=== PATIENT | female | born 1985 | race Caucasian/White ===

== ENCOUNTER → 2016-10-11 | Outpatient (CLI) | payer OTHER ==
[~2016-10-11] MED LIST: GABA1CAP4 PO; TRAZ50TA35 PO
--- NOTE | 2016-10-11 11:07 | DIAGNOSTIC IMAGING REPORT ---
ULTRASOUND RIGHT UPPER QUADRANT ABDOMEN CLINICAL HISTORY: Nausea. Epigastric abdominal pain. COMPARISON STUDY: Abdominal CT dated 08/14/2016. TECHNIQUE: Real-time, grayscale, and color flow sonography of the right upper quadrant of the abdomen was performed. Images are reviewed in the transverse and longitudinal planes. FINDINGS: Liver: The liver is normal in size and echotexture. There is no intrahepatic biliary ductal dilatation. The main portal vein is patent. Gallbladder: The gallbladder is normal in appearance. No gallstones are identified. There is no gallbladder wall thickening or pericholecystic fluid. A sonographic Keller's sign is reportedly absent. The common bile duct measures up to 0.5 cm in diameter. Pancreas: Visualized portions of the pancreatic head and body are normal in appearance. Right kidney: Survey images of the right kidney demonstrate normal size and echotexture. There is no hydronephrosis. Ascites: None. IMPRESSION: Unremarkable sonographic assessment of the right upper quadrant. No gallstones are identified. Electronically signed by: Michael Noriega M.D. 10/11/2016 11:05 AM Dictated Date/Time: 10/11/2016 11:05 AM
== END ==
LOC: C.ULTR 10:12
PROVIDERS: ATTEND Family Medicine
DX: R10.13 Epigastric pain (principal); R11.0 Nausea

== ENCOUNTER → 2017-03-12 | Outpatient (CLI) | payer OTHER ==
--- NOTE | 2017-03-12 19:21 | DIAGNOSTIC IMAGING REPORT ---
L-SPINE MIN 4 VIEWS ROUTINE HISTORY: Pain L LOWER BACK PAIN COMPARISON: None. FINDINGS: There is no fracture. No subluxation. Disc spaces are preserved. IMPRESSION: No fracture or subluxation within the lumbar spine. Negative study The above report was generated using voice recognition software. It may contain grammatical, syntax or spelling errors. Electronically signed by: Amarjit Joseph M.D. 03/12/2017 7:20 PM Dictated Date/Time: 03/12/2017 7:19 PM
--- NOTE | 2017-03-12 19:23 | DIAGNOSTIC IMAGING REPORT ---
SI JOINTS 3 OR MORE VIEWS CLINICAL HISTORY: L LOWER BACK PAIN COMPARISON STUDY: 03/26/2014 FINDINGS: Negative study. No evidence of bony ankylosis. Sacral foramina are symmetric IMPRESSION: Negative study The above report was generated using voice recognition software. It may contain grammatical, syntax or spelling errors. Electronically signed by: Amarjit Joseph M.D. 03/12/2017 7:22 PM Dictated Date/Time: 03/12/2017 7:21 PM
== END | disposition home or self-care (01) ==
LOC: C.RAD 18:49
PROVIDERS: ATTEND Physician Assistant
DX: M54.5 Low back pain (principal); M46.1 Sacroiliitis, not elsewhere classified

== ENCOUNTER → 2017-04-25 | Outpatient (CLI) | payer OTHER | END | disposition home or self-care (01) | LOC: C.CPL 18:12 | PROVIDERS: ATTEND Psychiatry & Neurology Psychiatry | DX: F90.9 Attention-deficit hyperactivity disorder, unspecified type (principal); R00.1 Bradycardia, unspecified ==

== ENCOUNTER → 2017-12-11 | Day surgery (SDC) | payer OTHER ==
[2017-11-27 13:08] VITALS: Ht 160 cm; Wt 79.5 kg
--- NOTE | 2017-12-08 16:06 | HISTORY & PHYSICAL EXAMINATION ---
DATE OF ADMISSION: 12/11/2017 CHIEF COMPLAINT: Pelvic pain, dyspareunia. HISTORY OF PRESENT ILLNESS: The patient is a 32-year-old 4, para 2. She had 2 spontaneous ABs. She had one delivery by . General health is complicated bipolar disorder. She is on gabapentin 300 mg twice a day, trazodone 100 mg at night for sleep, and Phenergan p.r.n. for nausea and vomiting. She has a Mirena IUD inserted for control, it is presently in place. She has a long-term history of pelvic pain present for well over a year and worsening and basically unresponsive to conservative methods such as nonnarcotic pain relievers. She also has a distressing amount of dyspareunia, which has been present also for over a year and it is getting progressively worse. She had a transvaginal ultrasound which basically showed the IUD was in good position and that the uterus, tubes, and ovaries were normal. She presently being scheduled for diagnostic laparoscopy with a suspected diagnosis of endometriosis. PAST MEDICAL HISTORY: She has 2 children in good health. ALLERGIES: She has no known drug allergies. PAST SURGICAL HISTORY: She had one . MEDICAL HISTORY: She has bipolar disorder and is on medications. SOCIAL HISTORY: Half a pack a day smoker for 8 years. No history of excessive alcohol intake. She is employed. FAMILY HISTORY: Mom is 51, has had recurrent breast cancer. Father 60 in poor health, is overweight, has high blood pressure and a lot of urinary problems. She has 1 sister, positive for hepatitis C. REVIEW OF SYSTEMS: She has a positive history of migraine headaches. PHYSICAL EXAMINATION: GENERAL: Well-developed, well-nourished 32-year-old white female, alert, oriented x3 and cooperative, in no acute distress. EYES: Conjunctivae are pink. Sclerae white, no evidence of jaundice. EARS: Had normal light reflex bilaterally. NOSE: Had normal mucosa. Septum is midline. There were no polyps. THROAT: No erythema or evidence of infection. Teeth are in good state of repair. HEAD: Normocephalic, normal distribution of hair. NECK: Supple. Trachea midline. Thyroid is not enlarged. There is no adenopathy appreciated. Both carotids are of good intensity. CHEST: Clear to auscultation and percussion. No wheezes, rales or rhonchi appreciated. HEART: Regular rhythm. S1, S2 are normal. BREASTS: Normal. ABDOMEN: Soft and nontender. There is a well-healed Pfannenstiel scar. PELVIC: Revealed the IUD string protruding from the external cervical os. Uterus was normal size. There was tenderness and nodularity of both uterosacral ligaments. MUSCULOSKELETAL: Revealed no calf tenderness. IMPRESSIONS OF THIS CASE: Status post section, pelvic pain, symptomatic endometriosis, bipolar disorder. MTDD
[~2017-12-11] VITALS: Ht 160 cm; Wt 79.5 kg
[~2017-12-11] MED LIST changes: +ACET-1311 PO; +ALPR-411 PO; +BUPIVACAINE/EPINEPHRINE 0.5% MPF 1:200,000 30 ML VIAL ONE; +DEXAMETHASONE SOD INJ 4 MG/ML VIAL ONE; +FENTANYL CITRATE INJ 50 MCG/1 ML 2 ML VIAL ONE; +GABA-1219 PO; -GABA1CAP4 PO; +HYDROCODONE/ACETAMIN 5/325MG TAB PO PRN; +IBUPROFEN 600 MG TAB PO PRN; +KETOROLAC TROMETHAMINE 30 MG/ML VIAL IV. PRN; +KETOROLAC TROMETHAMINE 30 MG/ML VIAL ONE; +LACTATED RINGER'S 1000ML 1,000 ML IV SCH; +LIDOCAINE HCL 2% 2 ML VIAL (20MG/ML) ONE; +MIDAZOLAM HCL 1 MG/ML 2ML VIAL ONE; +NURSING VERBAL MED ORDER ONE; +ONDANSETRON INJ 2 MG/ML 2 ML VIAL IV PRN; +ONDANSETRON INJ 2 MG/ML 2 ML VIAL ONE; +OXYCODONE/ACETAMINOPHEN 5-325 TAB PO PRN; +PROPOFOL IV EMULSION 10 MG/ML 20 ML VIAL IV ONE; +SODIUM CHLORIDE 0.9% 1000ML 1,000 ML IV SCH; +SODIUM CHLORIDE 0.9% INJ 10 ML VIAL ONE
--- NOTE | 2017-12-11 11:59 | History & Physical Bridge Note ---
H&P Re-Evaluation Bridge Note: I have examined the patient, reviewed the History & Physical and in the interval since the performance of the History & Physical I have noted the following changes of clinical significance: No changes noted
--- NOTE | 2017-12-11 13:04 | [facility] Post Operative Brief Note ---
Immediate Operative Summary Operative Date Dec 11, 2017. Pre-Operative Diagnosis Pelvic Pain Post-Operative Diagnosis endometriosis Procedure(s) Performed Diagnostic Laparoscopy Surgeon Dr. Shiva Angulo Aircraft Maintenance Manager Surgeon(s) 0 Estimated Blood Loss 1cc Findings Consistent with Post-Op Diagnosis Specimens none Drains None Anesthesia Type General Complication(s) none Disposition Disposition: Recovery Room / PACU
--- NOTE | 2017-12-11 13:15 | Discharge Instructions ---
Discharge Instructions Date of Service Dec 11, 2017. Admission Reason for Admission: Pelvic Pain Discharge Discharge Diagnosis / Problem: ENDOMETRIOSIS Discharge Goals Goal(s): Routine recovery after surgery Activity Recommendations Activity Limitations: as noted below SPECIAL CARE INSTRUCTIONS: * Check temperature twice daily for one week. Report any elevation over 100.4 degrees Fahrenheit (38.0 degrees Celsius). * Call office in the next few days for return appointment. * You may experience some vaginal spotting and/or bleeding, this is normal for one or two weeks and should not alarm you. * Post-operative discomfort may consist of a sore throat, a "bloated" feeling and pain in the shoulders. These are normal symptoms which usually only last for two or three days. FOLLOW UP VISIT: Keep any scheduled doctor appointments. . Instructions / Follow-Up Instructions / Follow-Up SPECIAL CARE INSTRUCTIONS: * Check temperature twice daily for one week. Report any elevation over 100.4 degrees Fahrenheit (38.0 degrees Celsius). * Call office in the next few days for return appointment. * You may experience some vaginal spotting and/or bleeding, this is normal for one or two weeks and should not alarm you. * Post-operative discomfort may consist of a sore throat, a "bloated" feeling and pain in the shoulders. These are normal symptoms which usually only last for two or three days. FOLLOW UP VISIT: Keep any scheduled doctor appointments. Current Hospital Diet Patient's current hospital diet: Discharge Diet Recommended Diet: Regular Diet Procedures Procedures Performed: Diagnostic Laparoscopy Pending Studies Studies pending at discharge: no Medical Emergencies . Who to Call and When: Medical Emergencies: If at any time you feel your situation is an emergency, please call 911 immediately. . Non-Emergent Contact Non-Emergency issues call your: Runstitching Machine Operator Call Non-Emergent contact if: temperature is above 100.5 . . "Provider Documentation" section prepared by Rodrigo Cantrell. .
--- NOTE | 2017-12-11 13:29 | OPERATIVE REPORT ---
DATE OF OPERATION: 12/11/2017 DIAGNOSTIC LAPAROSCOPY INDICATIONS FOR SURGERY: Pelvic pain, dyspareunia. PREOPERATIVE DIAGNOSIS: Suspected endometriosis. POSTOPERATIVE DIAGNOSIS: Suspected endometriosis. SURGEON: Dr. Cantrell ESTIMATED BLOOD LOSS: 5 mL. ANESTHESIA: General. OPERATIVE FINDINGS AND PROCEDURE: The patient was brought to the OR table, correctly identified by armband and conversation. General anesthesia was administered. Perineum, vagina, and lower abdomen were painted with Betadine paint and draped in usual sterile fashion. A catheter was used to empty the bladder. Careful pelvic exam under anesthesia revealed a normal size anteverted uterus. A weighted speculum was placed in the posterior vagina. The anterior lip of the cervix was grasped with single tooth tenaculum and an acorn cannula was inserted into cervical canal for manipulation of the uterus. An IUD string could be seen coming from the cervix at this time. After this, attention was turned to the lower abdomen. The subumbilical area was infiltrated with local with epinephrine. A stab wound was placed and then a Veress needle was inserted into the abdominal cavity and position was checked with normal saline. Following the insertion of about 2.5 L of carbon dioxide gas under low pressure, the incision was then widened laterally. A large cannula and trocar were inserted. The trocar was removed and a laparoscope was inserted. A second puncture site was made in the midline 3 fingerbreadths above the pubic symphysis. This area was also infiltrated with local with epinephrine and a stab wound was placed and a 5 mm trocar and sleeve was inserted under direct visualization. Following this, inspection of the pelvic cavity revealed both ovaries to be freely mobile, no evidence of any endometriosis on the surface of the ovaries, tubes were freely mobile, the bladder flap was clean, insertion of the round ligaments was good. There was endometriosis involving the left lateral uterosacral ligament and the left lateral pelvic wall, this was small, areas that were photographed and documented. Careful inspection of the right-sided pelvis and other areas revealed this to be the only area that showed endometriosis. This involved the lateral pelvic wall and also the left uterosacral ligament. Following photographs, gas was expressed manually. Ports were cleaned with Betadine and sutured with interrupted Vicryl. I attest to the content of the Intraoperative Record and any orders documented therein. Any exception s are noted below.
[2017-12-11 14:19] VITALS: TEMP 36.1
--- NOTE | 2017-12-11 14:19 | Anesthesia Progress Nt - [facility] ---
Anesthesia Post Op Note Date & Time Dec 11, 2017 at 14:19 Vital Signs Pain Intensity: 3.0 Vital Signs Past 12 Hours Date Time Temp Pulse Resp B/P (MAP) Pulse Ox O2 Delivery O2 Flow Rate FiO2 12/11/17 13:16 36.7 85 16 84/62 94 Mask 6 12/11/17 13:16 36.1 58 16 109/74 95 Room Air 12/11/17 11:27 36.5 89 18 90/64 (73) 95 Room Air Notes Mental Status: alert / awake / arousable, participated in evaluation Pt Amnestic to Procedure: Yes Nausea / Vomiting: adequately controlled Pain: adequately controlled Airway Patency, RR, SpO2: stable & adequate BP & HR: stable & adequate Hydration State: stable & adequate Anesthetic Complications: no major complications apparent
[2017-12-11 14:45] VITALS: BP 116/76; PULSE 59; O2SAT 98
== END | disposition home or self-care (01) ==
LOC: X.SURG 11:09
PROVIDERS: ATTEND Obstetrics & Gynecology
DX: R10.2 Pelvic and perineal pain (principal); N94.10 Unspecified dyspareunia; F17.200 Nicotine dependence, unspecified, uncomplicated; Z88.2 Allergy status to sulfonamides; Z91.018 Allergy to other foods; Z80.3 Family history of malignant neoplasm of breast

== ENCOUNTER 2024-01-29 15:13 | Inpatient (IN) ==
[2024-01-29 15:56] LABS: Basophils # (auto) 0.08 K/uL (0.00-0.20); Basophils % (auto) 0.8 %; Eosinophils # (auto) 0.53 K/uL (0.00-0.50); Eosinophils % (auto) 5.2 %; Hematocrit (blood only) 44.8 % (37.0-47.0); Hemoglobin 14.6 g/dl (12.0-16.0); Immature Granulocytes # (auto) 0.02 K/uL (0.01-0.20); Immature Granulocytes % (auto) 0.2 %; Lymphocytes # (auto) 2.73 K/uL (1.20-3.40); Lymphocytes % (auto) 26.7 %; Mean Corpuscular Hemoglobin 30.5 pg (25.0-34.0); Mean Corpuscular Hgb Conc 32.6 g/dL (32.0-36.0); Mean Corpuscular Volume 93.5 fL (80.0-100.0); Mean Platelet Volume 11.7 fL (9.4-12.4); Monocytes % (auto) 4.9 %; Neutrophils # (auto) 6.38 K/uL (1.40-6.50); Neutrophils % (auto) 62.2 %; Platelet Count 206 K/uL (130-400); RDW Coefficient of Variation 12.9 % (11.5-14.5); RDW Standard Deviation 44.5 fL (36.4-46.3); Red Blood Count 4.79 M/uL (4.20-5.40); White Blood Count 10.24 K/ul (4.8-10.8)
[2024-01-29 16:12] LABS: Albumin Globulin Ratio 1.3 (0.9-2); Albumin Level 4.3 gm/dl (3.4-5.0); BUN Creatinine Ratio 12.7 (10-20); Bilirubin,Total 0.4 mg/dl (0.2-1.0); Creatinine Clr Calc Pharmacy 103.4 ml/min; Est GFR (Non-African American) 109.6 ml/min; Globulin 3.3 gm/dl (2.5-4.0); Potassium 3.9 mmol/L (3.5-5.1); Total Protein 7.6 gm/dl (6.0-8.3)
[2024-01-29 16:21] LABS: Partial Thromboplastin Time 27 Seconds (21-31); Prothrombin Time 10.6 Seconds (9.0-12.0)
--- NOTE | 2024-01-29 16:56 | Emergency Department Note ---
Impression & Plan Cellulitis of hand, right, Cat bite ED Provider Note NAME: SANGEETHA CHURCH AGE: 38 SEX: F : 1985 ARRIVES VIA: Walk-In INFORMANT: Patient, ED PROVIDER(S): Erasmo Christianson DO CHIEF COMPLAINT: Animal bite HPI: The patient is a 38-year-old female who presented to the emergency department for an cat bite injury to her right hand. The patient states this occurred 2 days ago. She was taking medication that she had at home with no relief of her symptoms. The patient presented to the emergency department today because of ongoing pain and swelling in the right hand. She did not see her family doctor for the symptoms. The animal was a stray. ROS: See above HPI for pertinent positives & negatives. A total of 10 systems reviewed and were otherwise negative. PAST MEDICAL HISTORY: See Below PAST SURGICAL HISTORY: See Below FAMILY HISTORY: See Below SOCIAL HISTORY: See Below HOME MEDICATIONS: See Below ALLERGIES: See Below VITALS: See Below PHYSICAL EXAMINATION: GENERAL: Patient is awake and alert. The patient is anxious and appears uncomfortable. EYES: The conjunctivae are clear. The pupils are round and reactive. EARS, NOSE, MOUTH AND THROAT: The nose is without any evidence of any deformity. NECK: The neck is nontender and supple. RESPIRATORY: Normal respiratory effort is noted there is no evidence of wheezing rhonchi or rales CARDIOVASCULAR: Regular rate and rhythm noted there no murmurs rubs or gallops normal S1 normal S2. GASTROINTESTINAL: The abdomen is soft. Abdomen is nontender. MUSCULOSKELETAL/EXTREMITIES: There is no evidence of gross deformity full range of motion is noted in the hips and shoulders. SKIN: Right hand is swollen. There is a puncture wound on the ulnar side of the hand which appears to be on the dorsum as well as ulnar aspect of the hand. There is significant swelling and erythema. NEUROLOGIC: Patient is awake alert and oriented x3. MEDICAL DECISION MAKING: The patient is a 38-year-old female who presented to the emergency department because of right hand swelling and pain. The patient was bitten by a cat a few days ago. She presents to the emergency department today with obvious signs of cellulitis. The patient was taking antibiotics as an outpatient but condition seemed to worsen. X-ray reveals no signs of foreign body or free air. The patient was treated with IV pain medication as well as IV antibiotics emergency department. I discussed patient's condition with the on-call [facility] hospitalist. They have agreed to evaluate the patient in the emergency department for further management and disposition. Triage Nursing notes reviewed. Prior medical records reviewed Vital Signs: reviewed and remarkable for no significant abnormalities Differential diagnosis: Cellulitis, abscess, MRSA infection, DVT, necrotizing fasciitis, dermatitis, drug eruption, allergic reaction, as well as other pathologies. ER treatment provided: See below Diagnostics interpreted by me: ECG: none Cardiac Monitoring: An order was placed for continuous cardiac monitoring. The monitor shows a rate of 68 bpm with sinus rhythm. Laboratory studies: As stated above and show below. Imaging studies: See below. Radiographic imaging was reviewed by myself Consultation(s): I discussed this case with Dr. Lei [facility]. Past Med/Surg History Problem List (Updated 01/29/24 @ 21:13 by Erasmo Christianson DO) Cellulitis of hand, right (Acute) Cat bite (Acute) Medical History Closed head injury Social History Smoking Status: Unknown if ever smoked Tobacco Type: Cigarettes Feels Safe at Home: Yes Allergies Allergies Allergy/AdvReac Type Severity Reaction Status Date / Time chocolate flavor Allergy Severe ANAPHYLAXIS Verified 12/11/17 11:26 WITH "RAW CHOCOLATE" nut - unspecified Allergy Severe DIFFICULTY Unverified 12/11/17 11:26 BREATHING. Bactrim Allergy Intermediate VOMITING Verified 12/11/17 11:26 Home Meds Home Medications Medication Instructions Recorded Confirmed magnesium 1 cap PO DIRECTED 01/29/24 01/29/24 melatonin 1 tab PO DIRECTED 01/29/24 01/29/24 Results & Data (ED) Vital Signs Vital Signs - 24 hr 01/29/24 15:27 01/29/24 17:55 01/29/24 17:55 Temperature 36.7 C Temperature Source Temporal Artery Scan Pulse Rate 76 Pulse Rate [Finger] Respiratory Rate 19 Respiratory Effort / Characteristics Non-Labored Spontaneous Respiratory Depth Normal Blood Pressure 131/73 Blood Pressure [Left Arm] 139/84 Blood Pressure Mean 92 Blood Pressure Mean [Left Arm] 102 Pulse Oximetry 98 Oxygen Delivery Method Room Air Room Air Sepsis Recent Fever Within 48 Hours No Sepsis New/Unexplained Change in Mental Status No Sepsis Action Taken by Nursing No Action Required 01/29/24 18:16 Temperature Temperature Source Pulse Rate Pulse Rate [Finger] 77 Respiratory Rate 15 Respiratory Effort / Characteristics Respiratory Depth Blood Pressure Blood Pressure [Left Arm] 140/108 H Blood Pressure Mean Blood Pressure Mean [Left Arm] 118 Pulse Oximetry 99 Oxygen Delivery Method Sepsis Recent Fever Within 48 Hours Sepsis New/Unexplained Change in Mental Status Sepsis Action Taken by [facility] Medications Current Medication List: was personally reviewed by me Laboratory Data Attestation: I reviewed the patient's lab results. 01/29/24 15:35 01/29/24 15:35 Lab Results 01/29/24 Range/Units 15:35 WBC 10.24 (4.8-10.8) K/ul RBC 4.79 (4.20-5.40) M/uL Hgb 14.6 (12.0-16.0) g/dl Hct 44.8 (37.0-47.0) % MCV 93.5 (80.0-100.0) fL MCH 30.5 (25.0-34.0) pg MCHC 32.6 (32.0-36.0) g/dL RDW Std Deviation 44.5 (36.4-46.3) fL RDW Coeff of Rosario 12.9 (11.5-14.5) % Plt Count 206 (130-400) K/uL MPV 11.7 (9.4-12.4) fL Immature Gran % (Auto) 0.2 % Neut % (Auto) 62.2 % Lymph % (Auto) 26.7 % Toole % (Auto) 4.9 % Eos % (Auto) 5.2 % Baso % (Auto) 0.8 % Neut # (Auto) 6.38 (1.40-6.50) K/uL Lymph # (Auto) 2.73 (1.20-3.40) K/uL Toole # (Auto) 0.50 (0.11-0.59) K/uL Eos # (Auto) 0.53 H (0.00-0.50) K/uL Baso # (Auto) 0.08 (0.00-0.20) K/uL Immature Gran # (Auto) 0.02 (0.01-0.20) K/uL PT 10.6 (9.0-12.0) Seconds INR 1.0 (0.9-1.1) APTT 27 (21-31) Seconds PTT Ratio 1.0 Sodium 137 (136-145) mmol/L Potassium 3.9 (3.5-5.1) mmol/L Chloride 106 (98-107) mmol/L Carbon Dioxide 24 (21-32) mmol/L Anion Gap 7 (3-11) BUN 9 (6-23) mg/dl Creatinine 0.71 (0.6-1.2) mg/dl Est Cr Clr Drug Dosing 103.4 ml/min Est GFR ( Amer) 127.0 ml/min Est GFR (Non-Af Amer) 109.6 ml/min BUN/Creatinine Ratio 12.7 (10-20) Glucose 120 H (70-99(Fasting)) mg/dl Calcium 9.0 (8.6-10.3) mg/dl Total Bilirubin 0.4 (0.2-1.0) mg/dl AST 13 (13-39) U/L ALT 8 (7-52) U/L Alkaline Phosphatase 57 (34-104) U/L C-Reactive Protein 1.23 H (0-0.5) mg/dl Total Protein 7.6 (6.0-8.3) gm/dl Albumin 4.3 (3.4-5.0) gm/dl Globulin 3.3 (2.5-4.0) gm/dl Albumin/Globulin Ratio 1.3 (0.9-2) Procalcitonin < 0.02 (0-0.5) ng/ml HCG, Qual Negative (Negative) Administered Medications Discontinued Medications Ampicillin Sodium/Sulbactam Sodium 3,000 mg/ Sodium Chloride 100 mls @ 200 mls/hr IV NOW STA Stop: 01/29/24 17:04 Last Infusion: 01/29/24 18:16 Dose: Infused Documented By: Admin: 01/29/24 17:43 Dose: 200 mls/hr Documented By: BIANCA Daptomycin 200 mg/ Syringe 4 mls @ 2 mls/min IV ONE ONE; Protocol Stop: 01/29/24 19:16 Last Admin: 01/29/24 19:58 Dose: 2 mls/min Documented By: AMOR Ketorolac Tromethamine (Ketorolac Tromethamine 15 Mg/Ml Vial) 10 mg IV NOW ONE Stop: 01/29/24 16:42 Last Admin: 01/29/24 17:35 Dose: 10 mg Documented By: MARY Morphine Sulfate (Morphine Sulfate 4 Mg/Ml 1 Ml Carp\\Vial) 4 mg IV NOW STA Stop: 01/29/24 16:42 Last Admin: 01/29/24 17:35 Dose: Not Given Documented By: MARY Ondansetron HCl (Ondansetron Inj 2 Mg/Ml 2 Ml Vial) 4 mg IV NOW STA Stop: 01/29/24 16:42 Last Admin: 01/29/24 17:35 Dose: 4 mg Documented By: MARY Rabies Vaccine Human Diploid Cell (Rabies Vacc (Imovax) Human Dipl Cell 2.5 Units/Ml Syr) 2.5 units IM .ONCE ONE Stop: 01/29/24 16:42 Last Admin: 01/29/24 17:38 Dose: Not Given Documented By: MARY Imaging Data Attestation: I personally reviewed and interpreted this imaging study as follows: My Impression: X-ray of the right hand was obtained in the emergency department. My interpretation is no free air or definite fracture, final report below Radiologist's Impression: Hand X-Ray 01/29/24 16:36 RIGHT HAND 3 VIEWS CLINICAL HISTORY: Cat bite injury. FINDINGS: 3 views of the right hand are obtained. No prior studies are available for comparison at the time of dictation. The patient was unable to straighten the fingers. The skeletal structures are well mineralized. No fracture is seen. The joint spaces are maintained. Mild soft tissue swelling is noted throughout the fingers and hand. No radiodense foreign body or soft tissue gas is seen. IMPRESSION: Soft tissue swelling with no acute bony abnormality identified. Electronically signed by: Michael Noriega M.D. 01/29/2024 6:16 PM Discharge Plan Visit Data Chief Complaint: Animal Bite Stated Complaint: RT HAND CAT BITE ED Provider: Erasmo Christianson Discharge Problem: Cellulitis of hand, right, Cat bite Patient Disposition: Admitted As Inpatient Discharge Problem: Cat bite Qualifiers: Encounter type: initial encounter Qualified Code(s): W55.01XA - Bitten by cat, initial encounter
[2024-01-29 17:02] LABS: C Reactive Protein 1.23 mg/dl (0-0.5)
[2024-01-29] MEDS: KETOROLAC TROMETHAMINE 15 MG/ML VIAL IV ONE (17:35)
[2024-01-29] MEDS: MoRPHine SULFATE 4 MG/ML 1 ML CARP\\VIAL IV STA (17:35)
[2024-01-29] MEDS: ONDANSETRON INJ 2 MG/ML 2 ML VIAL IV STA (17:35)
[2024-01-29] MEDS: RABIES VACC (IMOVAX) HUMAN DIPL CELL 2.5 UNITS/ML SYR IM ONE (17:38)
[2024-01-29 17:43] LABS: Pregnancy Test, Serum Negative (Negative)
[2024-01-29] MEDS: AMPICILLIN/SULBACTAM SOD 3,000 MG in SODIUM CHLOR 0.9% MINI-B 100 ML IV STA (17:43)
--- NOTE | 2024-01-29 18:17 | XRay Report ---
RIGHT HAND 3 VIEWS CLINICAL HISTORY: Cat bite injury. FINDINGS: 3 views of the right hand are obtained. No prior studies are available for comparison at th e time of dictation. The patient was unable to straighten the fingers. The skeletal structures are we ll mineralized. No fracture is seen. The joint spaces are maintained. Mild soft tissue swelling is no senthil throughout the fingers and hand. No radiodense foreign body or soft tissue gas is seen. IMPRESSION: Soft tissue swelling with no acute bony abnormality identified. Electronically signed by: Michael Noriega M.D. 01/29/2024 6:16 PM
--- NOTE | 2024-01-29 18:17 | History & Physical Report ---
Date of Service January 29, 2024 Assessment & Plan (1) Cat bite: Plan: Bitten by a stray cat on the evening of 01/26 Worsening right hand erythema, swelling since then Patient initially took Augmentin (which she had at her house) after the bite, but this did not help Up-to-date on rabies; she declined an additional rabies shot in the ED Right hand x-ray revealed soft tissue swelling without acute bony abnormality MRI of the right hand ordered to rule out tenosynovitis Daptomycin, Rocephin, Flagyl MRSA swab pending Follow blood cultures Acetaminophen as needed for pain/fever Toradol as needed for breakthrough pain Orthopedics consulted A.m. CBC, BMP, CRP Plan Disposition: Admit to [facility] Full code Regular diet, n.p.o. at midnight VTE PPx: Low risk, encourage ambulation History of Present Illness Chief Complaint: Cat bite Primary Care Provider: NO PCP Sarai is a 38-year-old female with PMH of upper GI bleed, sinusitis, and incomplete . She presented for a cat bite that occurred on Friday 01/26 around 2300. Patient was bitten by a stray, community cat on her right hand, and quickly developed swelling and erythema. She had Augmentin at her house available, and took one within 15 minutes of the bite. While the redness and swelling was pretty bad right away, she woke up and it was feeling much worse. She reports she could not feel her fingertips or part of her wrists. She is feeling anxious and concerned with her ability to use her hand; difficulty with fine motor skills. She took Tylenol for pain, but her main concerns are with the numbness, discomfort, and hand dysfunction. When attempting to bend her fingers, she feels a pulling tension radiating up her forearm. She also notes that she had purulent/bloody discharge yesterday from the puncture site. Patient reports that she is up-to-date with her rabies shot (last had it in June) and she declined it in the ED today. No prior injuries to the right hand or forearm. Patient is left-hand dominant. She denies fevers, but did have some cold sweats the night prior. Patient is a current everyday tobacco cigarette smoker; 1-1.5 PPD. She endorses occasional alcohol use with the last being on Thursday 01/25. She is mildly hypertensive at 140/108 at time of admission; vitals otherwise stable. ED course: Unasyn 3000 mg IV Toradol 10 mg IV Zofran 4 mg IV Rabies vaccine 2.5 units IM (ordered, but not given) ROS: Patient endorses cold sweats last night, chills, nausea, right hand swelling/erythema/discomfort on the dorsal aspect, and purulent drainage from the puncture site. Patient denies fever, dizziness, lightheadedness, MCCALLUM, CP, SOB, vomiting, diarrhea, or change in urinary/bowel habits. Allergies Allergy/AdvReac Type Severity Reaction Status Date / Time chocolate flavor Allergy Severe ANAPHYLAXIS Verified 12/11/17 11:26 WITH "RAW CHOCOLATE" nut - unspecified Allergy Severe DIFFICULTY Unverified 12/11/17 11:26 BREATHING. Bactrim Allergy Intermediate VOMITING Verified 12/11/17 11:26 Home Medications Medication Instructions Recorded Confirmed Type magnesium 1 cap PO DIRECTED 01/29/24 01/29/24 History melatonin 1 tab PO DIRECTED 01/29/24 01/29/24 History Past Med/Surg History Problem List (Updated 01/29/24 @ 18:19 by Luis M Cuevas PA-C) Cat bite Medical History Closed head injury Social History Smoking Status: Unknown if ever smoked Tobacco Type: Cigarettes Feels Safe at Home: Yes Review of Systems 2 Review of Systems: See HPI above Physical Exam 2 Physical Exam: General: no acute distress; anxious, tearful; non-toxic appearing; well- nourished; cooperative; SpO2 99% on RA HEENT: normocephalic, atraumatic; no scleral icterus; PERRLA; moist mucus membrane; vision and hearing grossly intact Neck: supple; trachea midline Skin: warm, dry without signs of tenting; no cyanosis Right hand: Dorsal aspect of right hand is swollen/erythematous with puncture site visible (see photo below); warm to touch; diminished sensation on the ulnar aspect of her right hand/wrist/forearm; 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 when compared to the left; difficulty with flexion of the fourth and fifth fingers; patient demonstrates ability to flex wrist without difficulty CV: chest wall NTP; RRR; S1/S2 normal; no murmurs/rubs/gallops; pulses intact and symmetric at radial, DP, and PT Lungs: no acute respiratory distress; symmetrical chest wall expansion; clear breath sounds across all lung faye w/o adventitious sounds; no wheezing ABD: Soft, NTP; BS present; no rebound/guarding; no distention MSK: no tics or fasciculations; no edema noted in the LEs b/l, nonerythematous Neuro: A&Ox3; normal mood and affect; fluent speech; no focal deficits Results & Data Results & Data Vital Signs (Past 12 Hours) Vital Signs Temp Pulse Resp BP BP Pulse Ox O2 Del Method 01/29/24 17:55 139/84 01/29/24 17:55 Room Air 01/29/24 15:27 36.7 C 76 19 131/73 98 Room Air Laboratory Results Abnormal lab results 01/29/24 Range/Units 15:35 Eos # (Auto) 0.53 H (0.00-0.50) K/uL Glucose 120 H (70-99(Fasting)) mg/dl C-Reactive Protein 1.23 H (0-0.5) mg/dl Diagnostic Findings Hand X-Ray 01/29/24 16:36 RIGHT HAND 3 VIEWS CLINICAL HISTORY: Cat bite injury. FINDINGS: 3 views of the right hand are obtained. No prior studies are available for comparison at the time of dictation. The patient was unable to straighten the fingers. The skeletal structures are well mineralized. No fracture is seen. The joint spaces are maintained. Mild soft tissue swelling is noted throughout the fingers and hand. No radiodense foreign body or soft tissue gas is seen. IMPRESSION: Soft tissue swelling with no acute bony abnormality identified. Electronically signed by: Michael Noriega M.D. 01/29/2024 6:16 PM Code Status & VTE Plan Code Status Full code VTE Prophylaxis Plan VTE Prophylaxis will be ordered: Yes Supervising Physician Co-Signing Physician Notes Patient seen and examined, chart reviewed, case discussed with Luis M Cuevas PA-C and I agree with the assessment and plan as above except as otherwise noted Labs and images reviewed 38-year-old female who had a feral cat bite on 01/26, with progressive swelling and erythema which is worsening despite outpatient Augmentin therapy. Has had a rabies shot in the fall, declines rabies booster on ER assessment and at admission. On exam Patient reports that she has had some purulent with mixed bloody discharge from the hand in the last 24 hours. She had leftover Augmentin from a prior augmentin which she started taking twice daily. Despite this she has had expansion of the erythema, warmth and tenderness and is now unable to close her hand due to pain. Finger flexion does cause pain mostly in the dorsal aspect of the hand but also with some radiating pain into the wrist. Pressure applied to the proximal forearm does cause pain proximal to the wrist which radiates into the hand. Given purulence we will add daptomycin for MRSA coverage, and switch antibiotics to Rocephin/Flagyl. Given pain radiating into the forearm through the wrist with finger flexion concerning for tenosynovitis will consult orthopedics and obtain MRI with and without contrast. Agree with above. PG Care Time/CCT Total # of Minutes Spent Total Time Spent with Patient: Total time spent is greater than 50% in coordination of care (as documented) at patient's floor/unit and/or counseling patient: [place] [address] INT INP/OBS CARE 2/55MIN Patient Type New History Comprehensive Exam Comprehensive Medical Decision Making Moderate Complexity Diagnoses Cat bite W55.01XA
[2024-01-29] MEDS: DAPTOmycin 200 MG in SYRINGE 0 ML IV ONE (19:58)
[2024-01-29] MEDS ORDERED: ONDANSETRON INJ 2 MG/ML 2 ML VIAL IV PRN (21:33)
[2024-01-29] MEDS: GADOBUTROL 65ML VIAL IV ONE (22:22)
[2024-01-29] MEDS: ACETAMINOPHEN 325 MG TAB PO PRN (22:52)
[2024-01-29] MEDS: MELATONIN 3 MG TAB PO PRN (22:52)
[2024-01-29] MEDS: cefTRIAXone SODIUM 2,000 MG/50 ML BAG IV STA (22:56)
[2024-01-29] MEDS: metroNIDAZOLE 500 MG/100 ML BAG IV STA (22:57)
--- NOTE | 2024-01-30 01:33 | Magnetic Resonance Report ---
Exam(s): MRI RIGHT HAND W/WO Contrast EXAM: MR Right Upper Extremity Without and With Intravenous Contrast, Hand CLINICAL HISTORY: Reason for exam: Cat bite; tenosynovitis r/o. TECHNIQUE: Multiplanar magnetic resonance images of the right hand without and with intravenous contrast. CONTRAST: Contrast must be dictated COMPARISON: No relevant prior studies available. FINDINGS: Flexor: Unremarkable. Extensor: Unremarkable. Fluid: Unremarkable. No flexor or extensor tenosynovitis. No fluid collection or abscess. Bones/joints: Unremarkable. No MR evidence of osteomyelitis. Soft tissues: Mild-moderate dorsal subcutaneous edema along the ulnar aspect of the hand. Correlate for cellulitis. IMPRESSION: 1. No flexor or extensor tenosynovitis. No fluid collection or abscess. 2. Mild-moderate dorsal subcutaneous edema along the ulnar aspect of the hand. Correlate for cellulitis. Electronically signed by: Maikel Jennings MD 01/30/24 01:33 AM
[2024-01-30] MEDS: metroNIDAZOLE 500 MG/100 ML BAG IV SCH (06:03)
[2024-01-30 07:11] VITALS: BP 119/72; PULSE 66; RESP 18; TEMP 98.2; O2SAT 98
[2024-01-30 07:22] LABS: Basophils # (auto) 0.08 K/uL (0.00-0.20); Eosinophils % (auto) 6.1 %; Hematocrit (blood only) 42.6 % (37.0-47.0); Hemoglobin 14.2 g/dl (12.0-16.0); Immature Granulocytes # (auto) 0.02 K/uL (0.01-0.20); Immature Granulocytes % (auto) 0.2 %; Lymphocytes # (auto) 3.15 K/uL (1.20-3.40); Lymphocytes % (auto) 38.5 %; Mean Corpuscular Hemoglobin 30.9 pg (25.0-34.0); Mean Corpuscular Hgb Conc 33.3 g/dL (32.0-36.0); Mean Corpuscular Volume 92.6 fL (80.0-100.0); Mean Platelet Volume 11.5 fL (9.4-12.4); Monocytes # (auto) 0.54 K/uL (0.11-0.59); Monocytes % (auto) 6.6 %; Neutrophils % (auto) 47.6 %; Platelet Count 189 K/uL (130-400); RDW Coefficient of Variation 12.7 % (11.5-14.5); White Blood Count 8.19 K/ul (4.8-10.8)
[2024-01-30 07:34] LABS: Calcium 8.8 mg/dl (8.6-10.3); Potassium 3.9 mmol/L (3.5-5.1)
[2024-01-30 07:40] LABS: BUN Creatinine Ratio 16.7 (10-20); C Reactive Protein 1.31 mg/dl (0-0.5); Creatinine Clr Calc Pharmacy 110.9 ml/min; Est GFR (African American) 131.7 ml/min; Est GFR (Non-African American) 113.6 ml/min
[2024-01-30] MEDS ORDERED: NICOTINE 21 MG/24 HR TDSY TD SCH (09:00)
[2024-01-30] MEDS: NICOTINE 14 MG/24 HR PATCH TD SCH (09:30)
[2024-01-30] MEDS: KETOROLAC TROMETHAMINE 15 MG/ML VIAL IV PRN (09:31)
--- NOTE | 2024-01-30 12:41 | Hospitalist Progress Note ---
Date of Service January 30, 2024 Assessment & Plan (1) Cat bite: Plan: Acute/unstable - Bitten by a stray cat on the evening of 01/26 - Worsening right hand erythema, swelling since then - Patient initially took Augmentin (which she had at her house) after the bite, but this did not help - Up-to-date on rabies; she declined an additional rabies shot in the ED, UTD on tetanus - MRI hand was negative for abscess or evidence of tenosynovitis - Empirically started on: Daptomycin, Rocephin, Flagyl - continue for now, plan to de-escalate and transition to Bactrim and Flagyl upon discharge per up to date recommendations - Tylenol +/- Toradol for pain - Orthopedics consulted but will cancel this consult as there is no surgical intervention needed at this time - Kept NPO after MN for possible I&D, but no evidence that such is needed, advance diet - Anticipate home tomorrow (2) Tobacco use disorder: Plan: Chronic/stable - Ordered Nicotine patch 21mg/day, reduce dose to 14mg/day per patient request - Counseled on importance of cessation Plan Reviewed cbc, bmp, and crp ordered today. Labs are all stable. She is hemodynamically stable and afebrile. Will plan to continue IV antibiotics and transition to oral tomorrow and discharge home to complete course. Will give her off on Friday/Friday for work. Can return back to work without restrictions Friday. Plan d/w Dr. Marte. Admission and Anticipated Discharge Date Admission Date: January 29, 2024 Bhupinder Moon was seen and examined this morning on daily rounds. She was admitted on 01/28 for worsening cellulitis secondary to cat bite. She failed a course of Augmentin at home which she began taking on her own right after the bite occurred. Her last tetanus was in the fall and she subsequently did not update her tetanus. She notes that her pain is improved today both the swelling and the redness. 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 Her hand MRI was negative for tenosynovitis or abscess. Orthopedics has been consulted but has not yet seen her. She also has requested a lower dose of the nicotine patch. Review of Systems 2 Review of Systems: All systems reviewed and are unremarkable except as noted in HPI and below. Denies fever, chills, fatigue, headache, nasal congestion, sore throat, cough, chest pain, shortness of breath, palpitations, orthopnea, PND, abdominal pain, n/v/d, constipation, dysuria, hematuria, frequency, back pain, easy bruising or bleeding, skin lesions or rashes. Physical Exam 2 Physical Exam: GENERAL: 38 yo well-developed, well-nourished WF. NAD. LUNGS: Clear to auscultation bilaterally. No W/R/R. CARDIOVASCULAR: Regular rate and rhythm. ABDOMEN: Soft, non-tender and non-distended. BS normoactive x 4 quad. EXTREMITIES: No edema. Non-tender. Peripheral pulses +2/4. right hand with erythema and edema on the dorsal and ulnar aspect with a puncture wound noted in the center of the erythema. No oozing, drainage or bleeding. Tender to palpation. Edema noted but is able to close her hand. Results & Data Results & Data Vital Signs (Past 12 Hours) Vital Signs Temp Pulse Resp BP Pulse Ox O2 Del Method 01/30/24 07:10 36.8 C 66 18 119/72 98 Room Air Laboratory Results 01/30/24 07:06 01/30/24 07:06 PG Care Time/CCT Total # of Minutes Spent Total Time Spent with Patient: Total time spent is greater than 50% in coordination of care (as documented) at patient's floor/unit and/or counseling patient: Coding Level of Care Code 93263 SUB INP/OBS CARE 2/35MIN Diagnoses Cat bite W55.01XA Encounter type: initial encounter Tobacco use disorder F17.200 (1) Cat bite Encounter type: initial encounter Qualified Code(s): W55.01XA - Bitten by cat, initial encounter
--- NOTE | 2024-01-30 13:47 | Discharge Summary ---
Date of Service January 30, 2024 Admission HPI Per Admitting Provider Sarai is a 38-year-old female with PMH of upper GI bleed, sinusitis, and incomplete . She presented for a cat bite that occurred on Friday 01/26 around 2300. Patient was bitten by a stray, community cat on her right hand, and quickly developed swelling and erythema. She had Augmentin at her house available, and took one within 15 minutes of the bite. While the redness and swelling was pretty bad right away, she woke up and it was feeling much worse. She reports she could not feel her fingertips or part of her wrists. She is feeling anxious and concerned with her ability to use her hand; difficulty with fine motor skills. She took Tylenol for pain, but her main concerns are with the numbness, discomfort, and hand dysfunction. When attempting to bend her fingers, she feels a pulling tension radiating up her forearm. She also notes that she had purulent/bloody discharge yesterday from the puncture site. Patient reports that she is up-to-date with her rabies shot (last had it in June) and she declined it in the ED today. No prior injuries to the right hand or forearm. Patient is left-hand dominant. She denies fevers, but did have some cold sweats the night prior. Patient is a current everyday tobacco cigarette smoker; 1-1.5 PPD. She endorses occasional alcohol use with the last being on Thursday 01/25. She is mildly hypertensive at 140/108 at time of admission; vitals otherwise stable. ED course: Unasyn 3000 mg IV Toradol 10 mg IV Zofran 4 mg IV Rabies vaccine 2.5 units IM (ordered, but not given) ROS: Patient endorses cold sweats last night, chills, nausea, right hand swelling/erythema/discomfort on the dorsal aspect, and purulent drainage from the puncture site. Patient denies fever, dizziness, lightheadedness, MCCALLUM, CP, SOB, vomiting, diarrhea, or change in urinary/bowel habits. Principal Diagnosis right hand cellulitis secondary to cat bite Discharge Exam GENERAL: 38 yo well-developed, well-nourished WF. NAD. LUNGS: Clear to auscultation bilaterally. No W/R/R. CARDIOVASCULAR: Regular rate and rhythm. ABDOMEN: Soft, non-tender and non-distended. BS normoactive x 4 quad. EXTREMITIES: No edema. Non-tender. Peripheral pulses +2/4. right hand with erythema and edema on the dorsal and ulnar aspect with a puncture wound noted in the center of the erythema. No oozing, drainage or bleeding. Tender to palpation. Edema noted but is able to close her hand. Discharge Data Allergies Allergy/AdvReac Type Severity Reaction Status Date / Time chocolate flavor Allergy Severe ANAPHYLAXIS Verified 12/11/17 11:26 WITH "RAW CHOCOLATE" nut - unspecified Allergy Severe DIFFICULTY Unverified 12/11/17 11:26 BREATHING. Bactrim Allergy Intermediate VOMITING Verified 12/11/17 11:26 Consultations 01/29/24 17:02 ED Decision to Admit Stat Ordered Studies 01/30/24 07:06 01/30/24 07:06 Hand X-Ray 01/29/24 16:36 RIGHT HAND 3 VIEWS CLINICAL HISTORY: Cat bite injury. FINDINGS: 3 views of the right hand are obtained. No prior studies are available for comparison at the time of dictation. The patient was unable to straighten the fingers. The skeletal structures are well mineralized. No fracture is seen. The joint spaces are maintained. Mild soft tissue swelling is noted throughout the fingers and hand. No radiodense foreign body or soft tissue gas is seen. IMPRESSION: Soft tissue swelling with no acute bony abnormality identified. Electronically signed by: Michael Noriega M.D. 01/29/2024 6:16 PM Hand MRI 01/29/24 19:09 Exam(s): MRI RIGHT HAND W/WO Contrast EXAM: MR Right Upper Extremity Without and With Intravenous Contrast, Hand CLINICAL HISTORY: Reason for exam: Cat bite; tenosynovitis r/o. TECHNIQUE: Multiplanar magnetic resonance images of the right hand without and with intravenous contrast. CONTRAST: Contrast must be dictated COMPARISON: No relevant prior studies available. FINDINGS: Flexor: Unremarkable. Extensor: Unremarkable. Fluid: Unremarkable. No flexor or extensor tenosynovitis. No fluid collection or abscess. Bones/joints: Unremarkable. No MR evidence of osteomyelitis. Soft tissues: Mild-moderate dorsal subcutaneous edema along the ulnar aspect of the hand. Correlate for cellulitis. IMPRESSION: 1. No flexor or extensor tenosynovitis. No fluid collection or abscess. 2. Mild-moderate dorsal subcutaneous edema along the ulnar aspect of the hand. Correlate for cellulitis. Electronically signed by: Maikel Jennings MD 01/30/24 01:33 AM Hospital Course (1) Cat bite: Acute/unstable - Bitten by a stray cat on the evening of 01/26 - Worsening right hand erythema, swelling since then - Patient initially took Augmentin (which she had at her house) after the bite, but this did not help - Up-to-date on rabies; she declined an additional rabies shot in the ED, UTD on tetanus - MRI hand was negative for abscess or evidence of tenosynovitis - Empirically started on: Daptomycin, Rocephin, Flagyl - continue for now - Tylenol +/- Toradol for pain - Orthopedics consulted but will cancel this consult as there is no surgical intervention needed at this time - Kept NPO after MN for possible I&D, but no evidence that such is needed, advance diet - Plan to transition to oral Doxycycline 100mg BID x 7 days and Flagyl 500mg TID x 7 days. F/u with PCP. (2) Tobacco use disorder: Chronic/stable - Ordered Nicotine patch 21mg/day, reduce dose to 14mg/day per patient request - Counseled on importance of cessation Plan Patient is medically and hemodynamically stable for discharge home. Will transition to course of oral antibiotics as outlined above to complete. Stay off work on Friday/Friday for work. Can return back to work without restrictions Friday. Above plan of care has been d/w Dr. Marte who has also seen and evaluated this patient and agrees with aforementioned. Total Time Total Time Spent Total Time Spent (In Minutes): 35 minutes Discharge Plan Discharge Items Patient Disposition: Home - Self-Care Reason For Visit: CAT BITE Discharge Diagnosis: Cat bite with cellulitis of the right hand Activity: Resume your previous activity Non-emergency contact: Primary Care Provider Call non-emergency contact if: you have any medication questions, your symptoms worsen and your pain is not controlled Follow-up/Referrals: PCP,NO [Primary Care Provider] - Diet: Regular Addtl Attending Provider Instructions: You were hospitalized due to a cat bite that resulted in cellulitis of your right hand. You were treated with IV antibiotics during your hospital stay. You had an MRI which was negative for deep tendon involvement or abscess. You will be discharged home on a combination of antibiotics including Doxycycline 100mg, take one tablet by mouth twice a day until gone (7 days) and Flagyl 500mg, take one tablet three times a day until gone (also 7 days). You need to start the Doxycycline tomorrow (01/30) morning. Do not take with milk or calcium supplements. The Flagyl you need to start taking this evening before bed (01/29). You can remain off work on Friday and Friday, an excuse has been provided to you. 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 You can take over the counter extra strength Tylenol or Ibuprofen 600mg every 4-6 hours as needed for pain. Do not exceed the maximum dose noted on the bottle instructions. It is recommended that you follow up with a PCP within 7-10 days. Seek medical treatment/evaluation sooner if your hand swelling and redness worsens, you are unable to close your hand, your pain is uncontrolled, you develop a fever or drainage from your hand wound. Pending Studies at Discharge: No Stand-Alone Forms: [facility], Work/School Release, Smoking Cessation Medications and DC Order Prescriptions: New doxycycline hyclate 100 mg capsule 100 mg PO BID 7 Days Qty: 14 0RF Rx Instructions: start on 01/31/24 metronidazole 500 mg tablet 500 mg PO TID Qty: 7 0RF Rx Instructions: next dose is due this evening before bed Continued magnesium 1 cap PO DIRECTED Rx Instructions: otc. unknown dose melatonin 1 tab PO DIRECTED Rx Instructions: otc. unknown dose Krames/Other Patient Handouts: Animal Bites and Scratches Admission Data Admit Date/Time: 01/29/24 19:36 Attending Provider: Tam Marte Admit Provider: Cleveland Vázquez Primary Care Provider: PCP,NO Other Providers: Cleveland Vázquez Coding Level of Care Code 08178 INP/OBS DISCH >30 MIN Diagnoses Cat bite W55.01XA Encounter type: initial encounter Tobacco use disorder F17.200
--- NOTE | 2024-01-30 14:46 | Orthopedic Consultation ---
Date of Consultation January 30, 2024 Assessment & Plan (1) Cellulitis of hand, right: Plan At this point in time I do not see any operative indications. She has no evidence of septic joint and no evidence of septic flexor or extensor tenosynovitis. She has good response to antibiotics. Orthopedics will sign off. She does not require specific follow-up with me, but if she does have any issues with the hand she is free to see me at [facility] [place] in follow-up. I did instruct her in range of motion of the hand. History of Present Illness Reason for Consultation: Right hand cellulitis Requesting Physician: Dr. Luis M Cuevas Attending Physician: Tam Matre MD History of Present Illness this is a female who is status post a stray cat bite cart a few days ago. She did start herself on Augmentin orally but has not responded. She is admitted to the hospital service for intravenous antibiotics. She notes significant improvement with intravenous antibiotics. Allergies Allergy/AdvReac Type Severity Reaction Status Date / Time chocolate flavor Allergy Severe ANAPHYLAXIS Verified 12/11/17 11:26 WITH "RAW CHOCOLATE" nut - unspecified Allergy Severe DIFFICULTY Unverified 12/11/17 11:26 BREATHING. Bactrim Allergy Intermediate VOMITING Verified 12/11/17 11:26 Home Medications Medication Instructions Recorded Confirmed Type magnesium 1 cap PO DIRECTED 01/29/24 01/29/24 History melatonin 1 tab PO DIRECTED 01/29/24 01/29/24 History doxycycline hyclate 100 mg capsule 100 mg PO BID 7 days #14 caps 01/30/24 Rx metronidazole 500 mg tablet 500 mg PO TID #7 tabs 01/30/24 Rx Patient History Medical History Closed head injury Social History Smoking Status: Current every day smoker Tobacco Type: Cigarettes Do You Dip or Chew Tobacco: No; Tobacco Cessation Education Requested by Patient: No Hx Alcohol Use: Yes Alcohol type: beer Hx Substance Use: No Preferred Language: Mosotho Communication Ability: Effective Director Media Required: No Beliefs That Will Affect Care: None Current Living Situation: Family Other Information That Helps Us Care for You: No Feels Safe at Home: Yes Safety Concerns: Feels Safe At This Time Assistive Devices: None Physical Exam Musculoskeletal: Right upper extremity exam: She has a small amount of erythema over the dorsal aspect of the hand. She has no streaking erythema. She has significant decrease in erythema compared to the lines which were traced earlier. She has a puncture wound of the dorsal aspect of the hand over the mid metacarpal. There is no puncture wound over her joints. She shows supple motion of her joints without evidence of septic joint. She has negative Knavel signs. Results & Data Vital Signs (Past 12 Hours) Vital Signs Temp Pulse Resp BP Pulse Ox O2 Del Method 01/30/24 07:10 36.8 C 66 18 119/72 98 Room Air
[2024-01-30] MEDS ORDERED: cefTRIAXone SODIUM 2,000 MG/50 ML BAG IV SCH (19:00)
[2024-01-30] MEDS ORDERED: DAPTOmycin 200 MG in SYRINGE 0 ML IV SCH (19:30)
== END 2024-01-30 15:54 | disposition home or self-care (01) | DRG 603 ==
LOC: ED 15:13 → SUATTDRO 19:36 → 3E 19:36
DX: Z88.1 Allergy status to other antibiotic agents; S61.451A Open bite of right hand, initial encounter; W55.01XA Bitten by cat, initial encounter; Z91.018 Allergy to other foods; L03.113 Cellulitis of right upper limb